=== PATIENT | female | born 1990 | race Caucasian/White ===

== ENCOUNTER 2018-09-24 15:37 | Emergency (ER) | payer OTHER ==
[~2018-09-24] VITALS: Ht 162.6 cm; Wt 78.8 kg
[2018-09-24 15:41] VITALS: Ht 162.6 cm; Wt 78.8 kg
[2018-09-24] MEDS ORDERED: LIDOCAINE 1% (MPF) 30 ML INJ INJ STA (16:32)
[2018-09-24] MEDS ORDERED: OXYCODONE/ACETAMINOPHEN (5/325) TAB PO ONE (17:00)
[2018-09-24] MEDS ORDERED: IBUP-1542 PO (18:08)
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
[2018-09-24 19:01] VITALS: BP 121/71; PULSE 79; RESP 19
== END 2018-09-24 19:03 | disposition home or self-care (01) ==
LOC: E/R 15:37
DX: S05.11XA Contusion of eyeball and orbital tissues, right eye, initial encounter (principal); S63.635A Sprain of interphalangeal joint of left ring finger, initial encounter; R07.9 Chest pain, unspecified; W49.01XA Hair causing external constriction, initial encounter; Y92.9 Unspecified place or not applicable
CPT/HCPCS: 70450; 70486; 71045; 73140

== ENCOUNTER 2019-03-15 08:17 | Inpatient (IN) | payer MEDICAID, OTHER ==
[~2019-03-15] VITALS: Ht 160 cm; Wt 90.0 kg
[~2019-03-15 08:17] MED LIST: IBUP-1542 PO
[2019-03-15] MEDS ORDERED: morphine 4 MG/ML VIAL IV STA (08:35)
[2019-03-15] MEDS ORDERED: ONDANSETRON 4 MG INJ IV STA (08:35)
[2019-03-15] MEDS ORDERED: SOD CHLORIDE 0.9% 1,000 ML IV STA ×2 (08:35→11:24)
[2019-03-15] MEDS ORDERED: KETOROLAC 30 MG INJ IV STA (10:27)
[2019-03-15] MEDS ORDERED: DICYCLOMINE 10 MG CAP PO ONE (10:30)
[2019-03-15] MEDS ORDERED: AMPICILLIN/SULB 3 GM/NS (PMX) 100 ML IVPB ONE ×2 (11:30→12:30)
--- NOTE | 2019-03-15 11:45 | EN ---
Date/Time of Note Date/Time of Note DATE: 03/15/19 TIME: 11:44 ER Progress Note I have discussed the patient along with the PA and/or WET PRIMER POWDER BLENDER provider. I agree with the evaluation and plan of care. Please see their documentation for full ER course and evaluation. In short: Patient with persistent right upper quadrant abdominal pain Assessment and plan: Patient with dilated common bile duct, biliary colic. Concern for possible choledocholithiasis with transaminitis. Patient will benefit from inpatient hospitalization, GI, general surgery consultations and MRCP. Empiric Unasyn g iven. No signs or symptoms concerning for acute cholecystitis or ascending cholangitis currently. Accepting care team and consultations: I discussed the current laboratory data, diagnostic imaging and emergency care provided. Admitting team: Dr. Robison Admitting team indication: Insurance directed WINNIE ANDERSON MD Mar 15, 2019 11:45
[2019-03-15] MEDS ORDERED: ACETAMINOPHEN 325 MG TAB PO PRN (12:00)
[2019-03-15] MEDS ORDERED: ONDANSETRON 4 MG INJ IV PRN (12:00)
[2019-03-15] MEDS ORDERED: HYDROCODONE/APAP (5/325) TAB PO PRN (12:30)
[2019-03-15] MEDS ORDERED: NACL 0.9% 3 ML SYG IV SCH (12:30)
--- NOTE | 2019-03-15 12:39 | HP ---
Date/Time of Note Date/Time of Note DATE: 03/15/19 TIME: 12:33 Assessment/Plan VTE Prophylaxis SCD applied (from Nsg): Yes Pharmacological prophylaxis: NA/contraindicated Pharm contraindication: low risk/ambulating Lines/Catheters IV Catheter Type (from Nrsg): Peripheral IV Assessment/Plan Hospital Course Assessment and plan 1. Cholelithiasis with CBD dilation. MRCP is pending. Pack Room Operator as well as surgeon are notified. We will continue with IV hydration. Will provide with IV analgesics and antiemetics as needed as well. 2. Transaminitis. Secondary to #1. Continue IV hydration. Monitor trend. MRCP is pending. Follow-up with GI recommendations. 3. Obesity. Weight reduction to be advised. Discussed POC with Dr. Gómez Result Diagram: 03/15/19 0852 03/15/19 0852 Results 24hrs Laboratory Tests Test 03/15/19 08:50 03/15/19 08:52 03/15/19 10:08 Urine Color YELLOW Urine Clarity CLEAR Urine pH 8.0 Urine Specific [place] 1.010 Urine Ketones NEGATIVE Urine Nitrite NEGATIVE Urine Bilirubin NEGATIVE Urine Urobilinogen NEGATIVE Urine Leukocyte Esterase NEGATIVE Urine Microscopic RBC 2 Urine Microscopic WBC 0 Urine Hemoglobin 1+ H Urine Glucose NEGATIVE Urine Total Protein NEGATIVE White Blood Count 10.2 Red Blood Count 4.63 Hemoglobin 13.5 Hematocrit 40.4 Mean Corpuscular Volume 87.3 Mean Corpuscular Hemoglobin 29.2 Mean Corpuscular Hemoglobin Concent 33.4 Red Cell Distribution Width 12.6 Platelet Count 265 Mean Platelet Volume 10.6 H Immature Granulocytes % 0.600 H Neutrophils % 82.3 H Lymphocytes % 9.4 L Monocytes % 6.7 Eosinophils % 0.5 Basophils % 0.5 Nucleated Red Blood Cells % 0.0 Immature Granulocytes # 0.060 H Neutrophils # 8.4 H Lymphocytes # 1.0 Monocytes # 0.7 Eosinophils # 0.1 Basophils # 0.1 Nucleated Red Blood Cells # 0.0 Sodium Level 144 Potassium Level 3.7 Chloride Level 105 Carbon Dioxide Level 27 Anion Gap 12 Blood Urea Nitrogen 11 Creatinine 0.53 Est Glomerular Filtrat Rate mL/min > 60 Glucose Level 127 Calcium Level 9.5 Total Bilirubin 0.7 Direct Bilirubin 0.00 Indirect Bilirubin 0.7 Aspartate Amino Transf (AST/SGOT) 490 H Alanine Aminotransferase (ALT/SGPT) 292 H Alkaline Phosphatase 89 Total Protein 8.5 H Albumin 4.8 Globulin 3.70 H Albumin/Globulin Ratio 1.29 Lipase 254 POC Beta HCG, Qualitative NEGATIVE HPI/ROS Admit Date/Time Admit Date/Time Hx of Present Illness This is a 28-year-old female with no reported past medical history who came to [facility] due to reports of abdominal pain for 1 day duration. Patient did report that her abdominal pain started last night when she was eating dinner when she reportedly ate shrimp. She states that after eating the food she started to have vomiting even with little oral consumption or liquids. She reports that she started to have epigastric pain that radiated from her right upper abdominal quadrant. Due to worsening of symptoms came to the hospital. She was afebrile on arrival. No leukocytosis noted. She did get abdominal imaging however with a gallbladder ultrasound showing dilated common bile duct at the level of the jordan hepatis measuring up to 8.5 mm. There is also seen cholelithiasis with multiple gallstones and a distended gallbladder. No evidence of gallbladder wall thickening or pericholecystic fluid. Patient also was noted with elevated liver enzymes as well. Currently she is on IV hydration and she was provided with IV analgesics with good response. No other specific complaints or other symptoms reported. We will evaluate her for the aformentiond issues. ROS 12 point review of systems obtained entirely negative except as mentioned in history of present illness PMH/Family/Social Past Medical History Medical/surgical history 1. Tonsillectomy Medications Current Medications Ondansetron HCl (Zofran Inj) 4 mg BRIDGE ORDER PRN IV NAUSEA/VOMITING; Start at 12:00; Stop 03/16/19 at 11:59 Acetaminophen (Tylenol Tab) 650 mg ER BRIDGE PRN PO .MILD PAIN 1-3 OR TEMP; Start 03/15/19 at 12:00; Stop 03/16/19 at 11:59 Ampicillin Sodium/ Sulbactam Sodium 100 ml @ 100 mls/hr ONCE ONCE IVPB Last administered on 03/15/19at 12:31; Admin Dose 100 MLS/HR; Start 03/15/19 at 12:30; Stop 03/15/19 at 13:29 Coded Allergies: No Known Allergy (Unverified , 09/24/18) Family History Significant Family History: no pertinent family hx Social History Alcohol Use: none Smoking Status: Never smoker Drug Use: none Exam/Review of Systems Vital Signs Vitals Vital Signs Date Temp Pulse Resp B/P (MAP) Pulse Ox O2 O2 Flow FiO2 Time Delivery Rate 03/15/19 98.1 94 18 149/90 99 08:18 (109) Exam Constitutional: alert, oriented Psych: nl mood/affect Head: normocephalic Eyes: nl conjunctiva Respiratory: clear to auscultation, normal air movement Cardiovascular: regular rate and rhythm Gastrointestinal: soft, tender (More on epigastric area and on right upper abdominal quadrant) Extremities: normal pulses Neurological: LIQUOR BLENDER II-XII intact, nl mental status, nl speech REGIDOREZRA NP Mar 15, 2019 12:39
[2019-03-15] MEDS: SOD CHLORIDE 0.9% 1,000 ML IV SCH ×2 (13:15→21:29)
--- NOTE | 2019-03-15 13:23 | ERD ---
ER Documentation Chief Complaint Chief Complaint ap with vomiting HPI 28-year-old female presenting with epigastric pain and vomiting x2 days. Patient states that she woke up with very sharp pain to the epigastric region but denies any chest pain or shortness of breath. Had a few episodes of vomiting prior to her ER visit. Denies any fevers. Has not taken medications for symptoms. Denies changes in urination or bowel movement. Denies medical problems. NKDA. Surgical history denies. Social history denies. ROS All systems reviewed and are negative except as per history of present illness. Medications Home Meds Active Scripts Ibuprofen* (Motrin*) 600 Mg Tab, 600 MG PO Q8 PRN for PAIN AND/OR INFLAMMATION, #30 TAB Prov:EUGENIO MATA MD 09/24/18 Allergies Allergies: Coded Allergies: No Known Allergy (Unverified , 09/24/18) PMhx/Soc Medical and Surgical Hx: pt denies Medical Hx, pt denies Surgical Hx Hx Alcohol Use: No Hx Substance Use: No Hx Tobacco Use: No Smoking Status: Never smoker FmHx Family History: No diabetes, No coronary disease, No other Physical Exam Vitals Vital Signs Date Temp Pulse Resp B/P (MAP) Pulse Ox O2 O2 Flow FiO2 Time Delivery Rate 03/15/19 98.1 94 18 149/90 99 08:18 (109) Physical Exam GENERAL: The patient is well-appearing, well-nourished, in no acute distres CHEST: Clear to auscultation bilaterally. There are no rales, wheezes or rhonchi. HEART: Regular rate and rhythm. No murmurs, clicks, rubs or gallops. ABDOMEN: Active bowel sounds. No distention. Tender to palpation the epigastric region with rebound tenderness. Positive Rodriguez's. No tenderness p alpation of the lower pelvic area. Result Diagram: 03/15/19 0852 03/15/19 0852 Results 24 hrs Laboratory Tests Test 03/15/19 08:50 03/15/19 08:52 03/15/19 10:08 Urine Color YELLOW Urine Clarity CLEAR Urine pH 8.0 Urine Specific [place] 1.010 Urine Ketones NEGATIVE mg/dL Urine Nitrite NEGATIVE mg/dL Urine Bilirubin NEGATIVE mg/dL Urine Urobilinogen NEGATIVE mg/dL Urine Leukocyte Esterase NEGATIVE Rosalva/ul Urine Microscopic RBC 2 /HPF Urine Microscopic WBC 0 /HPF Urine Hemoglobin 1+ mg/dL Urine Glucose NEGATIVE mg/dL Urine Total Protein NEGATIVE mg/dl White Blood Count 10.2 10^3/ul Red Blood Count 4.63 10^6/ul Hemoglobin 13.5 g/dl Hematocrit 40.4 % Mean Corpuscular Volume 87.3 fl Mean Corpuscular Hemoglobin 29.2 pg Mean Corpuscular 33.4 g/dl Hemoglobin Concent Red Cell Distribution Width 12.6 % Platelet Count 265 10^3/UL Mean Platelet Volume 10.6 fl Immature Granulocytes % 0.600 % Neutrophils % 82.3 % Lymphocytes % 9.4 % Monocytes % 6.7 % Eosinophils % 0.5 % Basophils % 0.5 % Nucleated Red Blood Cells % 0.0 /100WBC Immature Granulocytes # 0.060 10^3/ul Neutrophils # 8.4 10^3/ul Lymphocytes # 1.0 10^3/ul Monocytes # 0.7 10^3/ul Eosinophils # 0.1 10^3/ul Basophils # 0.1 10^3/ul Nucleated Red Blood Cells # 0.0 10^3/ul Sodium Level 144 mmol/L Potassium Level 3.7 mmol/L Chloride Level 105 mmol/L Carbon Dioxide Level 27 mmol/L Anion Gap 12 Blood Urea Nitrogen 11 mg/dl Creatinine 0.53 mg/dl Est Glomerular Filtrat > 60 mL/min Rate mL/min Glucose Level 127 mg/dl Calcium Level 9.5 mg/dl Total Bilirubin 0.7 mg/dl Direct Bilirubin 0.00 mg/dl Indirect Bilirubin 0.7 mg/dl Aspartate Amino Transf (AST/SGOT) 490 IU/L Alanine 292 IU/L Aminotransferase (ALT/SGPT) Alkaline Phosphatase 89 IU/L Total Protein 8.5 g/dl Albumin 4.8 g/dl Globulin 3.70 g/dl Albumin/Globulin Ratio 1.29 Lipase 254 U/L POC Beta HCG, Qualitative NEGATIVE Current Medications Medications Dose Sig/Stephanie Start Time Status Last (Trade) Ordered Route PRN Stop Time Admin Dose Reason Admin Sodium 1,000 ml @ Q1H STAT 03/15/19 DC 03/15/19 Chloride 1,000 mls/hr IV 08:35 03/15/19 08:53 09:34 Morphine 4 mg ONCE STAT 03/15/19 DC 03/15/19 Sulfate IV 08:35 03/15/19 08:53 (morphine) 08:37 Ondansetron 4 mg ONCE STAT 03/15/19 DC 03/15/19 HCl (Zofran IV 08:35 03/15/19 08:53 Inj) 08:37 Ketorolac 30 mg ONCE STAT 03/15/19 DC 03/15/19 Tromethamine IV 10:27 03/15/19 10:31 (Toradol) 10:28 Dicyclomine 10 mg ONCE ONCE 03/15/19 DC 03/15/19 HCl PO 10:30 03/15/19 10:31 (Bentyl) 10:31 Ampicillin 100 ml @ ONCE ONCE 03/15/19 DC Sodium/ 100 mls/hr IVPB 11:30 03/15/19 Sulbactam 12:24 Sodium Sodium 1,000 ml @ Q1H STAT 03/15/19 DC 03/15/19 Chloride 1,000 mls/hr IV 11:24 03/15/19 11:28 12:23 Ondansetron 4 mg BRIDGE ORDER 03/15/19 DC HCl (Zofran PRN IV 12:00 03/15/19 Inj) NAUSEA/VOMITI 12:39 NG 650 mg ER BRIDGE 03/15/19 DC Acetaminophen PRN PO 12:00 03/15/19 (Tylenol .MILD PAIN 12:39 Tab) 1-3 OR TEMP Ampicillin 100 ml @ ONCE ONCE 03/15/19 03/15/19 Sodium/ 100 mls/hr IVPB 12:30 03/15/19 12:31 Sulbactam 13:29 Sodium Sodium 1,000 ml @ Q10H IV 03/15/19 03/15/19 Chloride 100 mls/hr 12:30 13:15 IV Flush 3 ml PER 03/15/19 (NS 3 ml) PROTOCOL IV 12:30 Ondansetron 4 mg Q6H PRN 03/15/19 HCl (Zofran IV 12:30 Inj) NAUSEA/VOMITI NG 650 mg Q6H PRN 03/15/19 Acetaminophen PO .PAIN 1-3 12:30 (Tylenol OR TEMP Tab) 1 tab Q6H PRN 03/15/19 Acetaminophen PO .MOD PAIN 12:30 / 4-6 Hydrocodone Bitart (Tripp (5/325)) Morphine 2 mg Q4H PRN 03/15/19 Sulfate IV .SEVERE 12:30 (morphine) PAIN 7-10 Famotidine 20 mg Q12 IV 03/15/19 (Pepcid Iv) 21:00 Procedures/MDM DIAGNOSTIC IMAGING REPORT Patient: CLARE CHAUDHARI : 1990 Age: 28 Sex: F [id number] DOS: 03/15/19 0000 Ordering MD: MAXIME VALDERRAMA PA-C Location: E Room/Bed: PROCEDURE: US Abdomen (Right upper quadrant). CLINICAL INDICATION: Abdominal Pain TECHNIQUE: Multiple real-time longitudinal and transverse images were acquired of the patient's right upper quadrant using a curved array transducer. COMPARISON: None. FINDINGS: Liver: The liver measures 15.7 cm in length. Liver demonstrates normal echogenicity. No focal mass lesions are seen. No intrahepatic biliary dilatation is seen. Gallbladder: Multiple echogenic shadowing gallstones are identified along the dependent gallbladder lumen which is mildly distended. There is no pericholecystic fluid or gallbladder wall thickening. No sonographic Rodriguez's tenderness reported by the tin plater. Pancreas: The visualized portions of the pancreas are unremarkable. Common bile duct: measures 8.5 mm in maximal dimension. Portal vein: The portal vein is patent with hepatopetal flow. Right Kidney: The right kidney measures 11.3 x 4.4 cm. There is no evidence of hydronephrosis. There are no kidney stones. IMPRESSION: Cholelithiasis with multiple gallstones in a distended gallbladder. No evidence of gallbladder wall thickening or pericholecystic fluid. If the patient has been premedicated with analgesics, sonographic Rodriguez's tenderness may not be reliable indicator to exclude acute cholecystitis. If clinical picture remains equivocal, HIDA scan can be helpful in excluding cystic duct obstruction. Dilated common bile duct at the level of the jordan hepatis measuring up to 8.5 mm. Further correlation with biliary function tests is recommended to assess for cholestatic process. MRCP or ERCP can be performed to exclude obstructing stone, mass or stricture. ER course: 2 L normal saline given in the ED. Morphine, Bentyl and Toradol given. Patient's pain improved however was bartender helper in the epigastric region. Unasyn given in the ED. MDM; 28-year-old female presenting with epigastric pain. Patient had continued pain after pain medication was distributed. Patient will be admitted for further evaluation and MRCP. Patient had elevated AST and ALT however lipase is within normal limits. Given patient has continued pain with questionable readings on ultrasound patient will be admitted for evaluation of choledocholithiasis. Patient is stable at the time of admission Departure Diagnosis: Primary Impression: Epigastric pain Additional Impression: Gallstones Condition: LUIS Simmons PA-C Mar 15, 2019 13:23
--- NOTE | 2019-03-15 13:32 | CONS ---
Assessment/Plan Assessment/Plan Hospital Course (Demo Recall) Summary Assessment and Plan: Assessment: Cholelithiasis with dilated common bile duct on imaging -Rule out choledocholithiasis Transaminitis Obesity Plan: MRCP is currently pending-if positive will proceed with ERCP Okay to start clear liquid diet after MRCP from GI point of view Need to monitor LFTs Recommend agents based on clinical course. Patient seen in collaboration with Dr. Whitfield CC: ARNOLDO WHITFIELD MD ; Consultation Date/Type/Reason Admit Date/Time Date of Consultation: Mar 15, 2019 Type of Consult GI Reason for Consultation Transaminitis with dilated common bile ducts Rule out choledocholithiasis Date/Time of Note DATE: 03/15/19 TIME: 13:18 Hx of Present Illness This is a 28-year-old female with no significant past medical history who presented to with complaints of epigastric pain radiating to right upper quadrant and right back area associated with nausea and vomiting x1 day. Work- up in the ED included a gallbladder ultrasound which showed cholelithiasis with multiple gallstones and a distended gallbladder. No evidence of gallbladder wall thickening or pericholecystic fluid. Dilated common bile duct at the level of the jordan hepatis measuring up to 8.5 mm. Additionally labs were obtained showing transaminitis AST is 490, ALT 292, normal alkaline phosphatase, normal total bilirubin. Currently patient denies nausea/vomiting can she continues to complain of epigastric pain to the right upper quadrant worse with taking a deep breath and palpation. She denies change in urine color, change in bowel habits, pyrosis, melena, hematochezia, or unintentional weight loss. Review of Systems: [A 12 system, review was conducted and is negative except as noted in the HPI or here.] Past Medical History Home Meds Active Scripts Ibuprofen* (Motrin*) 600 Mg Tab, 600 MG PO Q8 PRN for PAIN AND/OR INFLAMMATION, #30 TAB Prov:EUGENIO MATA MD 09/24/18 Medications Current Medications Ampicillin Sodium/ Sulbactam Sodium 100 ml @ 100 mls/hr ONCE ONCE IVPB Last administered on 03/15/19at 12:31; Admin Dose 100 MLS/HR; Start 03/15/19 at 12:30; Stop 03/15/19 at 13:29 Sodium Chloride 1,000 ml @ 100 mls/hr Q10H IV Last administered on 03/15/19at 13:15; Admin Dose 100 MLS/HR; Start 03/15/19 at 12:30 IV Flush (NS 3 ml) 3 ml PER PROTOCOL IV ; Start 03/15/19 at 12:30 Ondansetron HCl (Zofran Inj) 4 mg Q6H PRN IV NAUSEA/VOMITING; Start 03/15/19 at 12:30 Acetaminophen (Tylenol Tab) 650 mg Q6H PRN PO .PAIN 1-3 OR TEMP; Start 03/15/19 at 12:30 Acetaminophen/ Hydrocodone Bitart ([place] (5/325)) 1 tab Q6H PRN PO .MOD PAIN 4- 6; Start 03/15/19 at 12:30 Morphine Sulfate (morphine) 2 mg Q4H PRN IV .SEVERE PAIN 7-10; Start 03/15/19 at 12:30 Famotidine (Pepcid Iv) 20 mg Q12 IV ; Start 03/15/19 at 21:00 Allergies: Coded Allergies: No Known Allergy (Unverified , 09/24/18) Social History Alcohol Use: none Smoking Status: Never smoker Drug Use: none Exam/Review of Systems Exam Vitals Vital Signs Date Temp Pulse Resp B/P (MAP) Pulse Ox O2 O2 Flow FiO2 Time Delivery Rate 03/15/19 98.1 94 18 149/90 99 08:18 (109) Exam PHYSICAL EXAMINATION: GENERAL: Well developed, well nourished, alert & oriented x 3, in no acute distress SKIN: No lesions. HEAD: Normocephalic, atraumatic, no tenderness. EYES: Pupils equal reactive to light and accommodation, no discharge. EARS/NOSE AND THROAT: Ears normal, nose normal. NECK: Supple, no masses CHEST: Inspection within normal limits. CARDIOVASCULAR: Heart: Regular rate and rhythm, no murmurs, RESPIRATORY: Lungs clear to auscultation GASTROINTESTINAL AND LIVER: Abdomen: Soft,RUQ tenderness, non-distended, no hernias, no masses, no organomegaly, no ascites, no guarding, no rebound tenderness, normoactive bowel sounds. Rectal: Deferred. EXTREMITIES: No cyanosis, clubbing or edema. Results Result Diagram: 03/15/19 0852 03/15/19 0852 Results 24hrs Laboratory Tests Test 03/15/19 08:50 03/15/19 08:52 03/15/19 10:08 Urine Color YELLOW Urine Clarity CLEAR Urine pH 8.0 Urine Specific [place] 1.010 Urine Ketones NEGATIVE Urine Nitrite NEGATIVE Urine Bilirubin NEGATIVE Urine Urobilinogen NEGATIVE Urine Leukocyte Esterase NEGATIVE Urine Microscopic RBC 2 Urine Microscopic WBC 0 Urine Hemoglobin 1+ H Urine Glucose NEGATIVE Urine Total Protein NEGATIVE White Blood Count 10.2 Red Blood Count 4.63 Hemoglobin 13.5 Hematocrit 40.4 Mean Corpuscular Volume 87.3 Mean Corpuscular Hemoglobin 29.2 Mean Corpuscular Hemoglobin Concent 33.4 Red Cell Distribution Width 12.6 Platelet Count 265 Mean Platelet Volume 10.6 H Immature Granulocytes % 0.600 H Neutrophils % 82.3 H Lymphocytes % 9.4 L Monocytes % 6.7 Eosinophils % 0.5 Basophils % 0.5 Nucleated Red Blood Cells % 0.0 Immature Granulocytes # 0.060 H Neutrophils # 8.4 H Lymphocytes # 1.0 Monocytes # 0.7 Eosinophils # 0.1 Basophils # 0.1 Nucleated Red Blood Cells # 0.0 Sodium Level 144 Potassium Level 3.7 Chloride Level 105 Carbon Dioxide Level 27 Anion Gap 12 Blood Urea Nitrogen 11 Creatinine 0.53 Est Glomerular Filtrat Rate mL/min > 60 Glucose Level 127 Calcium Level 9.5 Total Bilirubin 0.7 Direct Bilirubin 0.00 Indirect Bilirubin 0.7 Aspartate Amino Transf (AST/SGOT) 490 H Alanine Aminotransferase (ALT/SGPT) 292 H Alkaline Phosphatase 89 Total Protein 8.5 H Albumin 4.8 Globulin 3.70 H Albumin/Globulin Ratio 1.29 Lipase 254 POC Beta HCG, Qualitative NEGATIVE Medications Medication Current Medications Ampicillin Sodium/ Sulbactam Sodium 100 ml @ 100 mls/hr ONCE ONCE IVPB Last administered on 03/15/19at 12:31; Admin Dose 100 MLS/HR; Start 03/15/19 at 12:30; Stop 03/15/19 at 13:29 Sodium Chloride 1,000 ml @ 100 mls/hr Q10H IV Last administered on 03/15/19at 13:15; Admin Dose 100 MLS/HR; Start 03/15/19 at 12:30 IV Flush (NS 3 ml) 3 ml PER PROTOCOL IV ; Start 03/15/19 at 12:30 Ondansetron HCl (Zofran Inj) 4 mg Q6H PRN IV NAUSEA/VOMITING; Start 03/15/19 at 12:30 Acetaminophen (Tylenol Tab) 650 mg Q6H PRN PO .PAIN 1-3 OR TEMP; Start 03/15/19 at 12:30 Acetaminophen/ Hydrocodone Bitart ([place] (5/325)) 1 tab Q6H PRN PO .MOD PAIN 4- 6; Start 03/15/19 at 12:30 Morphine Sulfate (morphine) 2 mg Q4H PRN IV .SEVERE PAIN 7-10; Start 03/15/19 at 12:30 Famotidine (Pepcid Iv) 20 mg Q12 IV ; Start 03/15/19 at 21:00 JAG ENNIS Mar 15, 2019 13:30
[2019-03-15 14:31] VITALS: BP 95/55; PULSE 60; RESP 16
[2019-03-15 15:19] VITALS: Ht 160 cm; Wt 90.0 kg
[2019-03-15 19:51] VITALS: BP 96/51; PULSE 59; RESP 18
[2019-03-15] MEDS: FAMOTIDINE 20 MG INJ IV SCH (20:58)
[2019-03-15] MEDS: morphine 2 MG INJ IV PRN (21:59)
[2019-03-16] VITALS (14 sets, daily range): BP systolic 96–123; BP diastolic 48–80; PULSE 65–96; RESP 14–27
[2019-03-16] MEDS: SOD CHLORIDE 0.9% 1,000 ML IV SCH ×2 (02:39→16:29)
[2019-03-16] MEDS: FAMOTIDINE 20 MG INJ IV SCH ×2 (09:07→20:31)
[2019-03-16] MEDS ORDERED: INDOMETHACIN 50 MG SUPP PR ONE (10:30)
--- NOTE | 2019-03-16 11:03 | HPN ---
Date/Time of Note Date/Time of Note DATE: 03/16/19 TIME: 11:03 Interval H&P Admission Note Pt. seen H&P reviewed: No system changes ARNOLDO COHEN MD Mar 16, 2019 11:03
--- NOTE | 2019-03-16 11:06 | PREAC ---
Date/Time of Note Date/Time of Note DATE: 03/16/19 TIME: 11:04 Anesthesia Eval and Record Evaluation Time Pre-Procedure Interview DATE: 03/16/19 TIME: 11:04 Age 28 Sex female NPO: 8 hrs Preoperative diagnosis cholecystitis Planned procedure ercp Past Medical History Past Medical History: None : Other ([facility]) Surgery & Anesthesia Issues No known issue Meds Anticoagulation: No Beta Babita within 24 hr: No Reason Beta Babita not given: Pt. not on B-Babita Active Scripts Ibuprofen* (Motrin*) 600 Mg Tab, 600 MG PO Q8 PRN for PAIN AND/OR INFLAMMATION, #30 TAB Prov:EUGENIO MATA MD 09/24/18 Current Medications Sodium Chloride 1,000 ml @ 100 mls/hr Q10H IV Last administered on 03/16/19at 02:39; Admin Dose 100 MLS/HR; Start 03/15/19 at 12:30 IV Flush (NS 3 ml) 3 ml PER PROTOCOL IV ; Start 03/15/19 at 12:30 Ondansetron HCl (Zofran Inj) 4 mg Q6H PRN IV NAUSEA/VOMITING; Start 03/15/19 at 12:30 Acetaminophen (Tylenol Tab) 650 mg Q6H PRN PO .PAIN 1-3 OR TEMP; Start 03/15/19 at 12:30 Acetaminophen/ Hydrocodone Bitart ([place] (5/325)) 1 tab Q6H PRN PO .MOD PAIN 4- 6; Start 03/15/19 at 12:30 Morphine Sulfate (morphine) 2 mg Q4H PRN IV .SEVERE PAIN 7-10 Last administered on 03/15/19at 21:59; Admin Dose 2 MG; Start 03/15/19 at 12:30 Famotidine (Pepcid Iv) 20 mg Q12 IV Last administered on 03/16/19at 09:07; Admin Dose 20 MG; Start 03/15/19 at 21:00 Meds reviewed: Yes Allergies Coded Allergies: No Known Allergy (Unverified , 09/24/18) Allergies Reviewed: No Labs/Studies Labs Reviewed: Reviewed by anesthesiologist Result Diagram: 03/16/191 03/16/19 0441 Laboratory Tests 03/16/19 04:41 test: Negative Pre-procedure Exam Last vitals Vital Signs Date Temp Pulse Resp B/P (MAP) Pulse Ox O2 O2 Flow FiO2 Time Delivery Rate 03/16/19 98.6 73 18 102/59 97 07:54 (73) 03/16/19 Room Air 02:42 Airway: Adequate mouth opening Mallampati: Mallampati I Teeth: Normal Lung: Normal Heart: Normal ASA Physical Status ASA physical status: 2 Emergency: E Planned Anesthetic General/MAC: ETT Pre-operative Attestations Prior to commencing anesthesia and surgery, the patient was re-evaluated, there was verification of: *The patient's identity *The results of appropriate recent lab work and preoperative vital signs *The above evaluation not changing prior to induction *Anesthetic plan, risk benefits, alternative and complications discussed with patient/family; questions answered; patient/family understands, accepts and wishes to proceed. ANGELLA STARK MD Mar 16, 2019 11:06
[2019-03-16] MEDS ORDERED: SUCCINYLCHOLINE CHLORIDE 100 MG/5 ML SYG IV ONE (11:10)
[2019-03-16] MEDS ORDERED: HYDROmorphONE 2 MG/ML SYG ONE (11:10)
[2019-03-16] MEDS ORDERED: PROPOFOL 20 ML ONE (11:10)
[2019-03-16] MEDS ORDERED: MEPERIDINE 25 MG INJ IV PRN (11:30)
[2019-03-16] MEDS ORDERED: HYDROmorphONE 1 MG/5 ML IV SYRINGE IV PRN ×2 (11:30)
[2019-03-16] MEDS ORDERED: LABETALOL HCL 20MG INJ IV PRN (11:30)
[2019-03-16] MEDS ORDERED: METOCLOPRAMIDE 10 MG INJ IV PRN (11:30)
[2019-03-16] MEDS ORDERED: hydrALAzine 20 MG INJ IV PRN (11:30)
[2019-03-16] MEDS ORDERED: ONDANSETRON 4 MG INJ IV PRN (11:30)
--- NOTE | 2019-03-16 11:57 | OPPN ---
Date/Time of Note Date/Time of Note DATE: 03/16/19 TIME: 11:53 Proc Note GI Procedure Date 03/16/19 Indication: diagnostic, treatment Pre-procedure Diagnosis Suspected choledocholithiasis Post-procedure Diagnosis Impression: Choledocholithiasis 6 mm stone distal common bile duct. Post sphincterotomy. Post stone removal. Plan: Close observation. Laparoscopic cholecystectomy at the discretion of ophthalmic surgical assistant Procedure Performed: ERCP (With sphincterotomy and stone removal) Surgeon ARNOLDO COHEN MD See signature line Environmental Project Manager none Anesthesia Type: general Anesthesiologist: ANGELLA STARK MD Tourniquet Time none EBL none Transfusion required none Biopsy 1: None Grafts/Implants none Tubes/Drains none Complication(s) none Disposition: PACU Procedure Description After informed consent, with the patient/relatives understanding the procedure, its indications, potential risks and complications, including but not limited to: allergic reaction, bleeding, perforation or infection, and after all pertinent questions were answered to the patients satisfaction, the patient/relatives signed witnessed informed consent. Following this, premedication was administered slowly IV push under careful cardiovascular and respiratory monitoring with pulse oximetry, automatic blood pressure, and phototypesetting equipment monitor. Once the sedative effect was achieved the patient was place in the prone position in the radiology special procedures suite; the side viewing panendoscope was introduced and advanced under visual control. Careful examination of the upper gastrointestinal tract, both on insertion as well as withdrawal of the instrument disclosed the following findings: Esophagus: The mucosa of the entire appears within normal limits. There is no evidence of esophagitis, varices, neoplasm or stricture. No Hiatal Hernia identified. Stomach: Upon entrance to the stomach air was insufflated, the gastric nolen distended normally, the mucosa of the fundus, body and antrum of the stomach was carefully examined both head-on and on retroflexion, and shows no abnormalities. There is no evidence of gastritis, ulcers, or neoplasm. Pylorus: The pylorus appears patent and within normal limits, with no evidence of gastric outlet obstruction. Duodenum: The duodenal mucosa was carefully examined in the duodenal bulb as well as the second portion of the duodenum and appears unremarkable with no evidence of duodenitis, ulcer or neoplasm. Ampulla of vater: The ampulla of Vater was identified and carefully examined appearing within normal limits. Cannulation: At this point cannulation was accomplished with the following fluo roscopic findings: Pancreatogram: Normal Cholangiogram: There is moderate dilatation of biliary tree to approximately 10 mm. A 6 mm stone is noticed initially impacted in the distal common bile duct but was less large enough lots of the common bile duct. A standard sphincterotomy was performed. A 9-12 balloon was utilized to sweep the biliary tree and remove the stone this was witnessed endoscopically. Balloon cholangiogram disclosed no additional stones and rapid emptying. The instrument was then withdrawn the patient tolerated the procedure well and was transfer out of the endoscopy suite awake, and in good condition to continue to recover under observation. Copies To: CC: ARNOLDO COHEN MD ; ARNOLDO COHEN MD Mar 16, 2019 11:57
--- NOTE | 2019-03-16 12:37 | PAC ---
Date/Time of Note Date/Time of Note DATE: 03/16/19 TIME: 12:37 Post-Anesthesia Notes Post-Anesthesia Note Last documented vital signs Vital Signs Date Temp Pulse Resp B/P (MAP) Pulse Ox O2 O2 Flow FiO2 Time Delivery Rate 03/16/19 96 21 115/78 97 Mask 12:08 (90) 03/16/19 99.0 6.0 12:00 Activity: WNL Respiratory function: WNL Cardiovascular function: WNL Mental status: Baseline Pain reasonably controlled: Yes Hydration appropriate: Yes Nausea/Vomiting absent: Yes ANGELLA STARK MD Mar 16, 2019 12:37
--- NOTE | 2019-03-16 13:11 | PN ---
Date/Time of Note Date/Time of Note DATE: 03/16/19 TIME: 13:09 Assessment/Plan VTE Prophylaxis Risk score (from [facility] [place] [facility])>0 risk: 0 SCD applied (from Ns): Yes Pharmacological prophylaxis: NA/contraindicated Pharm contraindication: low risk/ambulating Lines/Catheters IV Catheter Type (from [facility]): Peripheral IV Assessment/Plan Hospital Course Assessment and plan 1. Cholelithiasis with CBD dilation. - MRCP with no CBD dilation. -l continue with IV hydration. - analgesics and antiemetics as needed as well. - tentative plan for lap-laurence 2. Transaminitis. - f/u hepatitis panel - monitor trend 3. Obesity. - Weight reduction was advised. Disposition plan. possible laparoscopic cholecystectomy per surgeon. f/u GI recommendations. monitor LFT . Will follow. Discussed POC with Dr. Gómez Result Diagram: 03/16/19 0441 03/16/19 0441 Results 24hrs Laboratory Tests Test 03/16/19 04:41 03/16/19 09:01 White Blood Count 4.0 #L Red Blood Count 3.94 L Hemoglobin 11.6 L Hematocrit 34.7 L Mean Corpuscular Volume 88.1 Mean Corpuscular Hemoglobin 29.4 Mean Corpuscular Hemoglobin Concent 33.4 Red Cell Distribution Width 12.8 Platelet Count 200 # Mean Platelet Volume 10.9 H Immature Granulocytes % 0.700 H Neutrophils % 42.9 Lymphocytes % 36.6 Monocytes % 12.9 H Eosinophils % 5.7 Basophils % 1.2 Nucleated Red Blood Cells % 0.0 Immature Granulocytes # 0.030 Neutrophils # 1.7 Lymphocytes # 1.5 Monocytes # 0.5 Eosinophils # 0.2 Basophils # 0.1 Nucleated Red Blood Cells # 0.0 Sodium Level 145 H Potassium Level 3.7 Chloride Level 110 Carbon Dioxide Level 27 Anion Gap 8 Blood Urea Nitrogen 6 L Creatinine 0.55 Est Glomerular Filtrat Rate mL/min > 60 Glucose Level 88 Hemoglobin A1c 5.0 Calcium Level 8.4 Phosphorus Level 3.6 Magnesium Level 1.9 Total Bilirubin 1.6 H Direct Bilirubin 0.10 Indirect Bilirubin 1.5 H Aspartate Amino Transf (AST/SGOT) 641 H Alanine Aminotransferase (ALT/SGPT) 774 H Alkaline Phosphatase 93 Total Protein 6.0 #L Albumin 3.4 # Globulin 2.60 Albumin/Globulin Ratio 1.30 Triglycerides Level 134 Cholesterol Level 146 LDL Cholesterol, Calculated 90 HDL Cholesterol 29 L Cholesterol/HDL Ratio 5.0 Thyroid Stimulating Hormone (TSH) 1.010 Free Thyroxine Index 2.01 Thyroxine (T4) 4.9 L Triiodothyronine (T3) Uptake 41.1 H Hepatitis B Surface Antigen NEGATIVE Hepatitis B Core Total Antibody NEGATIVE Hepatitis C Antibody NEGATIVE Subjective 24 Hr Interval Summary Free Text/Dictation Seen this morning with abdominal pain more on right upper abdominal quadrant radiating to epigastric area. Exam/Review of Systems Exam Vitals Vital Signs Date Temp Pulse Resp B/P (MAP) Pulse Ox O2 O2 Flow FiO2 Time Delivery Rate 03/16/19 74 17 111/68 90 Room Air 12:38 (82) 03/16/19 99.0 6.0 12:00 Intake and Output 03/15/19 03/15/19 03/16/19 1515:00 23:00 07:00 IntakeIntake Total 2000 ml 350 ml 850 ml BalanceBalance 2000 ml 350 ml 850 ml Exam Constitutional: alert, oriented Psych: nl mood/affect Head: normocephalic Eyes: nl conjunctiva Respiratory: clear to auscultation, normal air movement Cardiovascular: regular rate and rhythm Gastrointestinal: soft, tender ( right upper abdominal quadrant) Extremities: normal pulses Neurological: FIRE WARDEN II-XII intact, nl mental status, nl speech Results Results 24hrs Laboratory Tests Test 03/16/19 04:41 03/16/19 09:01 White Blood Count 4.0 #L Red Blood Count 3.94 L Hemoglobin 11.6 L Hematocrit 34.7 L Mean Corpuscular Volume 88.1 Mean Corpuscular Hemoglobin 29.4 Mean Corpuscular Hemoglobin Concent 33.4 Red Cell Distribution Width 12.8 Platelet Count 200 # Mean Platelet Volume 10.9 H Immature Granulocytes % 0.700 H Neutrophils % 42.9 Lymphocytes % 36.6 Monocytes % 12.9 H Eosinophils % 5.7 Basophils % 1.2 Nucleated Red Blood Cells % 0.0 Immature Granulocytes # 0.030 Neutrophils # 1.7 Lymphocytes # 1.5 Monocytes # 0.5 Eosinophils # 0.2 Basophils # 0.1 Nucleated Red Blood Cells # 0.0 Sodium Level 145 H Potassium Level 3.7 Chloride Level 110 Carbon Dioxide Level 27 Anion Gap 8 Blood Urea Nitrogen 6 L Creatinine 0.55 Est Glomerular Filtrat Rate mL/min > 60 Glucose Level 88 Hemoglobin A1c 5.0 Calcium Level 8.4 Phosphorus Level 3.6 Magnesium Level 1.9 Total Bilirubin 1.6 H Direct Bilirubin 0.10 Indirect Bilirubin 1.5 H Aspartate Amino Transf (AST/SGOT) 641 H Alanine Aminotransferase (ALT/SGPT) 774 H Alkaline Phosphatase 93 Total Protein 6.0 #L Albumin 3.4 # Globulin 2.60 Albumin/Globulin Ratio 1.30 Triglycerides Level 134 Cholesterol Level 146 LDL Cholesterol, Calculated 90 HDL Cholesterol 29 L Cholesterol/HDL Ratio 5.0 Thyroid Stimulating Hormone (TSH) 1.010 Free Thyroxine Index 2.01 Thyroxine (T4) 4.9 L Triiodothyronine (T3) Uptake 41.1 H Hepatitis B Surface Antigen NEGATIVE Hepatitis B Core Total Antibody NEGATIVE Hepatitis C Antibody NEGATIVE Medications Medication Current Medications Sodium Chloride 1,000 ml @ 100 mls/hr Q10H IV Last administered on 03/16/19at 02:39; Admin Dose 100 MLS/HR; Start 03/15/19 at 12:30 IV Flush (NS 3 ml) 3 ml PER PROTOCOL IV ; Start 03/15/19 at 12:30 Ondansetron HCl (Zofran Inj) 4 mg Q6H PRN IV NAUSEA/VOMITING; Start 03/15/19 at 12:30 Acetaminophen (Tylenol Tab) 650 mg Q6H PRN PO .PAIN 1-3 OR TEMP; Start 03/15/19 at 12:30 Acetaminophen/ Hydrocodone Bitart ([place] (5/325)) 1 tab Q6H PRN PO .MOD PAIN 4- 6; Start 03/15/19 at 12:30 Morphine Sulfate (morphine) 2 mg Q4H PRN IV .SEVERE PAIN 7-10 Last administered on 03/15/19at 21:59; Admin Dose 2 MG; Start 03/15/19 at 12:30 Famotidine (Pepcid Iv) 20 mg Q12 IV Last administered on 03/16/19at 09:07; Admin Dose 20 MG; Start 03/15/19 at 21:00 Hydromorphone HCl (Dilaudid) 0.2 mg PACU PRN IV MILD PAIN 1-3; Start 03/16/19 at 11:30; Stop 03/16/19 at 16:00 Hydromorphone HCl (Dilaudid) 0.4 mg PACU PRN IV MOD PAIN 4-6; Start 03/16/19 at 11:30; Stop 03/16/19 at 16:00 Ondansetron HCl (Zofran Inj) 4 mg PACU ORDER PRN IV NAUSEA/VOMITING; Start 03/16/19 at 11:30; Stop 03/16/19 at 16:00 Metoclopramide HCl (Reglan) 10 mg PACU ORDER PRN IV NAUSEA/VOMITING; Start 03/16/19 at 11:30; Stop 03/16/19 at 16:00 Labetalol HCl (Labetalol) 5 mg PACU ORDER PRN IV HIGH BLOOD PRESSURE; Start 03/16/19 at 11:30; Stop 03/16/19 at 16:00 Hydralazine HCl (Apresoline) 5 mg PACU ORDER PRN IV HIGH BLOOD PRESSURE; Start 03/16/19 at 11:30; Stop 03/16/19 at 16:00 Meperidine HCl (Demerol) 25 mg PACU ORDER PRN IV .RIGORS; Start 03/16/19 at 11:30; Stop 03/16/19 at 16:00 EZRA PAN NP Mar 16, 2019 13:11
[2019-03-16] MEDS: ONDANSETRON 4 MG INJ IV PRN (13:12)
[2019-03-16] MEDS: morphine 2 MG INJ IV PRN (13:12)
[2019-03-16] MEDS: ACETAMINOPHEN 325 MG TAB PO PRN ×2 (16:29→22:54)
--- NOTE | 2019-03-16 20:08 | CONS ---
Assessment/Plan Assessment/Plan Problems: (1) Gallstones Status: Acute (2) Epigastric pain Status: Acute Assessment/Plan (Daily) Cholelithiasis. Choledocholithiasis should be ruled out. Agree with MRCP possible ERCP followed by laparoscopic cholecystectomy. Consultation Date/Type/Reason Admit Date/Time Date of Consultation: Mar 15, 2019 Type of Consult Surgical Date/Time of Note DATE: 03/16/19 TIME: 20:06 Hx of Present Illness This is a 28-year-old female with no significant past medical history who presented to with complaints of epigastric pain radiating to right upper quadrant and right back area associated with nausea and vomiting x1 day. Work- up in the ED included a gallbladder ultrasound which showed cholelithiasis with multiple gallstones and a distended gallbladder. No evidence of gallbladder wall thickening or pericholecystic fluid. Dilated common bile duct at the level of the jordan hepatis measuring up to 8.5 mm. Additionally labs were obtained showing transaminitis AST is 490, ALT 292, normal alkaline phosphatase, normal total bilirubin. Currently patient denies nausea/vomiting can she continues to complain of epigastric pain to the right upper quadrant worse with taking a deep breath and palpation. She denies change in urine color, change in bowel habits, pyrosis, melena, hematochezia, or unintentional weight loss. Constitutional: no complaints, improved Eyes: no complaints ENT: no complaints Respiratory: no complaints Cardiovascular: no complaints Gastrointestinal: no complaints Genitourinary: no complaints Musculoskeletal: no complaints Skin: no complaints Neurologic: no complaints Endocrine: no complaints Lymphatic: no complaints Psychological: no complaints, nl mood/affect Immunologic: no complaints Past Medical History Home Meds Active Scripts Ibuprofen* (Motrin*) 600 Mg Tab, 600 MG PO Q8 PRN for PAIN AND/OR INFLAMMATION, #30 TAB Prov:EUGENIO MATA MD 09/24/18 Medications Current Medications Sodium Chloride 1,000 ml @ 100 mls/hr Q10H IV Last administered on 03/16/19at 16:29; Admin Dose 100 MLS/HR; Start 03/15/19 at 12:30 IV Flush (NS 3 ml) 3 ml PER PROTOCOL IV ; Start 03/15/19 at 12:30 Ondansetron HCl (Zofran Inj) 4 mg Q6H PRN IV NAUSEA/VOMITING Last administered on 03/16/19at 13:12; Admin Dose 4 MG; Start 03/15/19 at 12:30 Acetaminophen (Tylenol Tab) 650 mg Q6H PRN PO .PAIN 1-3 OR TEMP Last administered on 03/16/19at 16:29; Admin Dose 650 MG; Start 03/15/19 at 12:30 Acetaminophen/ Hydrocodone Bitart ([place] (5/325)) 1 tab Q6H PRN PO .MOD PAIN 4- 6; Start 03/15/19 at 12:30 Morphine Sulfate (morphine) 2 mg Q4H PRN IV .SEVERE PAIN 7-10 Last administered on 03/16/19at 13:12; Admin Dose 2 MG; Start 03/15/19 at 12:30 Famotidine (Pepcid Iv) 20 mg Q12 IV Last administered on 03/16/19at 09:07; Admin Dose 20 MG; Start 03/15/19 at 21:00 Allergies: Coded Allergies: No Known Allergy (Unverified , 09/24/18) Social History Alcohol Use: none Smoking Status: Never smoker Drug Use: none Exam/Review of Systems Exam Vitals Vital Signs Date Temp Pulse Resp B/P (MAP) Pulse Ox O2 O2 Flow FiO2 Time Delivery Rate 03/16/19 98.4 79 20 115/70 100 19:53 (85) 03/16/19 Room Air 12:38 03/16/19 6.0 12:00 Intake and Output 03/15/19 03/15/19 03/16/19 1515:00 23:00 07:00 IntakeIntake Total 2000 ml 350 ml 850 ml BalanceBalance 2000 ml 350 ml 850 ml Gastrointestinal: other (Mild tenderness in the right upper quadrant.) Results Result Diagram: 03/16/191 03/16/191 Results 24hrs Laboratory Tests Test 03/16/19 04:41 03/16/19 09:01 White Blood Count 4.0 #L Red Blood Count 3.94 L Hemoglobin 11.6 L Hematocrit 34.7 L Mean Corpuscular Volume 88.1 Mean Corpuscular Hemoglobin 29.4 Mean Corpuscular Hemoglobin Concent 33.4 Red Cell Distribution Width 12.8 Platelet Count 200 # Mean Platelet Volume 10.9 H Immature Granulocytes % 0.700 H Neutrophils % 42.9 Lymphocytes % 36.6 Monocytes % 12.9 H Eosinophils % 5.7 Basophils % 1.2 Nucleated Red Blood Cells % 0.0 Immature Granulocytes # 0.030 Neutrophils # 1.7 Lymphocytes # 1.5 Monocytes # 0.5 Eosinophils # 0.2 Basophils # 0.1 Nucleated Red Blood Cells # 0.0 Sodium Level 145 H Potassium Level 3.7 Chloride Level 110 Carbon Dioxide Level 27 Anion Gap 8 Blood Urea Nitrogen 6 L Creatinine 0.55 Est Glomerular Filtrat Rate mL/min > 60 Glucose Level 88 Hemoglobin A1c 5.0 Calcium Level 8.4 Phosphorus Level 3.6 Magnesium Level 1.9 Total Bilirubin 1.6 H Direct Bilirubin 0.10 Indirect Bilirubin 1.5 H Aspartate Amino Transf (AST/SGOT) 641 H Alanine Aminotransferase (ALT/SGPT) 774 H Alkaline Phosphatase 93 Total Protein 6.0 #L Albumin 3.4 # Globulin 2.60 Albumin/Globulin Ratio 1.30 Triglycerides Level 134 Cholesterol Level 146 LDL Cholesterol, Calculated 90 HDL Cholesterol 29 L Cholesterol/HDL Ratio 5.0 Thyroid Stimulating Hormone (TSH) 1.010 Free Thyroxine Index 2.01 Thyroxine (T4) 4.9 L Triiodothyronine (T3) Uptake 41.1 H Hepatitis B Surface Antigen NEGATIVE Hepatitis B Core Total Antibody NEGATIVE Hepatitis C Antibody NEGATIVE Medications Medication Current Medications Sodium Chloride 1,000 ml @ 100 mls/hr Q10H IV Last administered on 03/16/19at 16:29; Admin Dose 100 MLS/HR; Start 03/15/19 at 12:30 IV Flush (NS 3 ml) 3 ml PER PROTOCOL IV ; Start 03/15/19 at 12:30 Ondansetron HCl (Zofran Inj) 4 mg Q6H PRN IV NAUSEA/VOMITING Last administered on 03/16/19at 13:12; Admin Dose 4 MG; Start 03/15/19 at 12:30 Acetaminophen (Tylenol Tab) 650 mg Q6H PRN PO .PAIN 1-3 OR TEMP Last administered on 03/16/19at 16:29; Admin Dose 650 MG; Start 03/15/19 at 12:30 Acetaminophen/ Hydrocodone Bitart ([place] (5/325)) 1 tab Q6H PRN PO .MOD PAIN 4- 6; Start 03/15/19 at 12:30 Morphine Sulfate (morphine) 2 mg Q4H PRN IV .SEVERE PAIN 7-10 Last administered on 03/16/19at 13:12; Admin Dose 2 MG; Start 03/15/19 at 12:30 Famotidine (Pepcid Iv) 20 mg Q12 IV Last administered on 03/16/19at 09:07; Admin Dose 20 MG; Start 03/15/19 at 21:00 ANETA BLANCHARD MD Mar 16, 2019 20:08
[2019-03-17] VITALS (17 sets, daily range): BP systolic 105–121; BP diastolic 58–86; PULSE 68–96; RESP 14–23
[2019-03-17] MEDS: SOD CHLORIDE 0.9% 1,000 ML IV SCH ×2 (02:37→04:09)
[2019-03-17] MEDS: morphine 2 MG INJ IV PRN ×2 (05:35→15:25)
[2019-03-17] MEDS: ONDANSETRON 4 MG INJ IV PRN (05:35)
--- NOTE | 2019-03-17 10:08 | PREAC ---
Date/Time of Note Date/Time of Note DATE: 03/17/19 TIME: 10:07 Anesthesia Eval and Record Evaluation Time Pre-Procedure Interview DATE: 03/17/19 TIME: 10:07 Age 28 Sex female NPO: 8 hrs Preoperative diagnosis Cholelithiasis Planned procedure Lap Cholecystectomy Past Medical History Past Medical History: Includes GI: Obesity Surgery & Anesthesia Issues No known issue Meds Anticoagulation: No Beta Babita within 24 hr: No Reason Beta Babita not given: Pt. not on B-Babita Active Scripts Ibuprofen* (Motrin*) 600 Mg Tab, 600 MG PO Q8 PRN for PAIN AND/OR INFLAMMATION, #30 TAB Prov:EUGENIO MATA MD 09/24/18 Current Medications Sodium Chloride 1,000 ml @ 100 mls/hr Q10H IV Last administered on 03/17/19at 02:37; Admin Dose 100 MLS/HR; Start 03/15/19 at 12:30 IV Flush (NS 3 ml) 3 ml PER PROTOCOL IV ; Start 03/15/19 at 12:30 Ondansetron HCl (Zofran Inj) 4 mg Q6H PRN IV NAUSEA/VOMITING Last administered on 03/17/19at 05:35; Admin Dose 4 MG; Start 03/15/19 at 12:30 Acetaminophen (Tylenol Tab) 650 mg Q6H PRN PO .PAIN 1-3 OR TEMP Last administered on 03/16/19at 22:54; Admin Dose 650 MG; Start 03/15/19 at 12:30 Acetaminophen/ Hydrocodone Bitart ([place] (5/325)) 1 tab Q6H PRN PO .MOD PAIN 4- 6; Start 03/15/19 at 12:30 Morphine Sulfate (morphine) 2 mg Q4H PRN IV .SEVERE PAIN 7-10 Last administered on 03/17/19at 05:35; Admin Dose 2 MG; Start 03/15/19 at 12:30 Famotidine (Pepcid Iv) 20 mg Q12 IV Last administered on 03/16/19at 20:31; Admin Dose 20 MG; Start 03/15/19 at 21:00 Meds reviewed: Yes Allergies Coded Allergies: No Known Allergy (Unverified , 09/24/18) Allergies Reviewed: Yes Labs/Studies Labs Reviewed: Reviewed by anesthesiologist Result Diagram: 7/5/19 0441 7/5/19 0441 test: Negative Studies: ECG Pre-procedure Exam Last vitals Vital Signs Date Temp Pulse Resp B/P (MAP) Pulse Ox O2 O2 Flow FiO2 Time Delivery Rate 03/17/19 98.4 76 18 106/72 96 08:16 (83) 03/16/19 Room Air 12:38 03/16/19 6.0 12:00 Airway: Adequate mouth opening, Adequate thyromental dist Mallampati: Mallampati II Teeth: Normal Lung: Normal Heart: Normal ASA Physical Status ASA physical status: 2 Emergency: None Planned Anesthetic General/MAC: ETT Planned Pain Management Single shot nerve block, Parenteral pain med Pre-operative Attestations Prior to commencing anesthesia and surgery, the patient was re-evaluated, there was verification of: *The patient's identity *The results of appropriate recent lab work and preoperative vital signs *The above evaluation not changing prior to induction *Anesthetic plan, risk benefits, alternative and complications discussed with patient/family; questions answered; patient/family understands, accepts and wishes to proceed. MALACHI DC MD Mar 17, 2019 10:08
[2019-03-17] MEDS ORDERED: MIDAZOLAM 1 MG/ML 2 ML INJ ONE (10:20)
--- NOTE | 2019-03-17 10:41 | HPN ---
Date/Time of Note Date/Time of Note DATE: 03/17/19 TIME: 10:39 Interval H&P Admission Note Pt. seen H&P reviewed: Systems changes noted below Patient underwent ERCP yesterday and common bile duct stone was extracted. ANETA BLANCHARD MD Mar 17, 2019 10:41
[2019-03-17] MEDS ORDERED: ROPIVACAINE 0.5 % 30 ML VIAL ONE (11:00)
[2019-03-17] MEDS ORDERED: BUPIVACAINE 0.5%/EPI (SDV) 30 ML INJ ONE (11:14)
[2019-03-17] MEDS ORDERED: LIDOCAINE 1% (MPF) 30 ML INJ ONE (11:14)
[2019-03-17] MEDS ORDERED: PROPOFOL 20 ML ONE (11:44)
[2019-03-17] MEDS ORDERED: CEFAZOLIN 1 GM INJ ONE (11:44)
[2019-03-17] MEDS ORDERED: LIDOCAINE 2% (SDV) 5 ML INJ ONE (11:44)
[2019-03-17] MEDS ORDERED: ROCURONIUM 50 MG INJ ONE (11:44)
[2019-03-17] MEDS ORDERED: KETOROLAC 30 MG INJ ONE (11:45)
[2019-03-17] MEDS ORDERED: ONDANSETRON 4 MG INJ ONE (11:45)
[2019-03-17] MEDS ORDERED: GLYCOPYRROLATE 0.4 MG INJ ONE (11:54)
[2019-03-17] MEDS ORDERED: NEOSTIGMINE 3 MG/3 ML SYRINGE ONE (11:54)
[2019-03-17] MEDS ORDERED: morphine 2 MG INJ IV PRN (12:00)
[2019-03-17] MEDS ORDERED: IBUPROFEN 600 MG TAB PO PRN (12:00)
[2019-03-17] MEDS ORDERED: ONDANSETRON 4 MG INJ IV PRN ×2 (12:00→12:30)
[2019-03-17] MEDS ORDERED: HYDROCODONE/APAP (5/325) TAB PO PRN (12:00)
[2019-03-17] MEDS ORDERED: ACETAMINOPHEN 325 MG TAB PO PRN (12:00)
[2019-03-17] MEDS ORDERED: DIPHENHYDRAMINE 25 MG CAP PO PRN (12:00)
[2019-03-17] MEDS ORDERED: KETOROLAC 30 MG INJ IV PRN ×2 (12:00→12:30)
--- NOTE | 2019-03-17 12:03 | OPR ---
Date/Time of Note Date/Time of Note DATE: 03/17/19 TIME: 12:01 Operative Report Procedure Date: Mar 17, 2019 Preoperative Diagnosis Acute cholecystitis Postoperative Diagnosis Acute cholecystitis Operation/Procedure Performed Laparoscopic cholecystectomy with fluorescent cholangiogram Surgeon see signature line Petal Cutter None Anesthesia Type: general Anesthesiologist: A Estimated Blood Loss: 0 - 10 ml's Transfusion none Specimen Gallbladder Grafts/Implants none Complications none Pt Condition Post Procedure: stable Disposition: PACU Indications Patient presented with acute cholecystitis and elevated LFTs. Underwent ERCP yesterday with common bile duct stone extraction We discussed risks and benefits were discussed possible side effects, possible complications including but not limited to bleeding, infection, injury to other organs, anesthesia complication, patient understood risk and benefits and wished to proceed. Procedure Description The risks, benefits and alternatives of the procedure were discussed with the patient and informed consent was obtained. We discussed with the patient and the family possibility of the bleeding, infection, injury to other organs, bile ducts injury, retained stones and necessity of the ERCP. OPERATIVE PROCEDURE: The patient was brought to the operating room and placed supine. IV antibiotics were given. Venodynes were placed to both lower extremities. General endotracheal anesthesia was achieved. The abdomen was prepped and draped in a sterile fashion. 0.25% Marcaine with epinephrine was used for local anesthesia. A small infraumbilical incision was made and a Veress needle inserted. Intraperitoneal position was confirmed using the saline drop test. Carbon dioxide pneumoperitoneum was achieved with a good filling pressure to 15 mmHg. The 30-degree 5 mm video laparoscope was inserted through a 5-mm trocar placed in the right paramedian position just next to umbilicus. There was no evidence of injury after Veress needle and trocar insertion. Additional trocars were placed, a 12-mm subxiphoid trocar, and two 5-mm trocars at the right upper quadrant. The gallbladder was grasped at the fundus and elevated cephalad. The area at Calot's triangle was dissected using blunt and electrocautery dissection, and critical view was obtained. ICG imaging confirmed the correct identification of the biliary ducts. Clip placed across the cystic duct and artery. The cystic duct was clipped additionally and then divided. The cystic artery was clipped x2 additionally. The gallbladder was dissected off the liver using electrocautery dissection and removed using an EndoCatch bag. The trocars were removed under direct visualization and no bleeding seen at the trocar sites. The pneumoperitoneum was reduced and the subxiphoid and umbilical trocar sites closed with 0 Vicryl to reapproximate the fascia. The trocar sites were reapproximated with 4-0 Monocryl sutures. Steri-Strips and sterile dressings were applied. The sponge and instrument counts were reported as correct x2. Estimated blood loss was 5 cc. The patient was woken from anesthesia, extubated, and transferred to the recovery room in stable condition. By the end of the procedure, the instrument and sponge counts were correct x2. STATEMENT OF PRESENCE: Dr. Montanez was present for the entire case. ANETA MONTANEZ MD Mar 17, 2019 12:03
--- NOTE | 2019-03-17 12:18 | PAC ---
Date/Time of Note Date/Time of Note DATE: 03/17/19 TIME: 12:17 Post-Anesthesia Notes Post-Anesthesia Note Last documented vital signs Vital Signs Date Temp Pulse Resp B/P (MAP) Pulse Ox O2 O2 Flow FiO2 Time Delivery Rate 03/17/19 98.4 76 18 106/72 96 08:16 (83) 03/16/19 Room Air 12:38 03/16/19 6.0 12:00 Activity: WNL Respiratory function: WNL Cardiovascular function: WNL Mental status: Baseline Pain reasonably controlled: Yes Hydration appropriate: Yes Nausea/Vomiting absent: Yes Comments BP:112/56, P:88, Spo2:100%, T:99,4 MALACHI DC MD Mar 17, 2019 12:18
[2019-03-17] MEDS ORDERED: MEPERIDINE 25 MG INJ IV PRN (12:30)
[2019-03-17] MEDS ORDERED: DIPHENHYDRAMINE 50 MG INJ IV PRN (12:30)
[2019-03-17] MEDS ORDERED: HYDROmorphONE 1 MG/5 ML IV SYRINGE IV PRN (12:30)
[2019-03-17] MEDS ORDERED: FENTAnyl 50 MCG/ML VIAL IV PRN (12:30)
[2019-03-17] MEDS ORDERED: OXYCODONE/ACETAMINOPHEN (5/325) TAB PO PRN (12:30)
[2019-03-17] MEDS ORDERED: METOCLOPRAMIDE 10 MG INJ IV PRN (12:30)
[2019-03-17] MEDS: HYDROmorphONE 1 MG/5 ML IV SYRINGE IV PRN ×2 (12:43→12:54)
[2019-03-17] MEDS: D5W-0.45 NACL + KCL 20 MEQ 1,000 ML IV SCH ×2 (13:58→21:44)
[2019-03-17] MEDS: FAMOTIDINE 20 MG INJ IV SCH ×2 (13:58→21:43)
--- NOTE | 2019-03-17 14:49 | PN ---
Date/Time of Note Date/Time of Note DATE: 03/17/19 TIME: 14:46 Assessment/Plan VTE Prophylaxis Risk score (from [facility] [place] risk: 2 SCD applied (from Ns): Yes Pharmacological prophylaxis: other (scds) Lines/Catheters IV [facility] Type (from [facility]): Peripheral IV Assessment/Plan Hospital Course Summary Assessment and Plan: Assessment: Cholelithiasis (symptomatic versus acute cholecystitis) with dilated common bile duct on imaging -ERCP 03/16/19 Impression: Choledocholithiasis 6 mm stone distal common bile duct. Post sphincterotomy. Post stone removal. -S/p Laparoscopic cholecystectomy with fluorescent cholangiogram 03/17/19 Transaminitis-trending down Obesity Plan: Diet per surgery Monitor labs Ambulate and deep breathing Patient seen in collaboration with Dr. Whitfield Subjective: Course reviewed with nursing staff Patient interviewed and examined All labs, imaging and other results reviewed The patient returned from surgery, c/o some surgical pain- to be expected No c/o nausea or vomiting. encourage pt to ambulate and deep breath Exam PHYSICAL EXAMINATION: GENERAL: Well developed, well nourished, alert & oriented x 3, in no acute distress SKIN: No lesions. HEAD: Normocephalic, atraumatic, no tenderness. EYES: Pupils equal reactive to light and accommodation, no discharge. EARS/NOSE AND THROAT: Ears normal, nose normal. NECK: Supple, no masses CHEST: Inspection within normal limits. CARDIOVASCULAR: Heart: Regular rate and rhythm, no murmurs, RESPIRATORY: Lungs clear to auscultation GASTROINTESTINAL AND LIVER: Abdomen: Soft,RUQ tenderness, non-distended, no hernias, no masses, no organomegaly, no ascites, no guarding, no rebound tenderness, normoactive bowel sounds. Rectal: Deferred. EXTREMITIES: No cyanosis, clubbing or edema. Result Diagram: 03/16/19 0441 03/16/19 0441 Results 24hrs Laboratory Tests Test 03/17/19 04:22 Total Bilirubin 0.7 Direct Bilirubin 0.00 Indirect Bilirubin 0.7 Aspartate Amino Transf (AST/SGOT) 212 H Alanine Aminotransferase (ALT/SGPT) 497 H Alkaline Phosphatase 88 Total Protein 6.1 Albumin 3.4 Exam/Review of Systems Exam Vitals Vital Signs Date Temp Pulse Resp B/P (MAP) Pulse Ox O2 O2 Flow FiO2 Time Delivery Rate 03/17/19 97.7 77 20 121/77 94 14:35 (92) 03/17/19 Room Air 13:19 03/17/19 8.0 12:19 Intake and Output 03/16/19 03/16/19 03/17/19 1515:00 23:00 07:00 IntakeIntake Total 600 ml 1420 ml BalanceBalance 600 ml 1420 ml Results Results 24hrs Laboratory Tests Test 03/17/19 04:22 Total Bilirubin 0.7 Direct Bilirubin 0.00 Indirect Bilirubin 0.7 Aspartate Amino Transf (AST/SGOT) 212 H Alanine Aminotransferase (ALT/SGPT) 497 H Alkaline Phosphatase 88 Total Protein 6.1 Albumin 3.4 Medications Medication Current Medications Sodium Chloride 1,000 ml @ 100 mls/hr Q10H IV Last administered on 03/17/19at 02:37; Admin Dose 100 MLS/HR; Start 03/15/19 at 12:30 IV Flush (NS 3 ml) 3 ml PER PROTOCOL IV ; Start 03/15/19 at 12:30 Acetaminophen (Tylenol Tab) 650 mg Q6H PRN PO .PAIN 1-3 OR TEMP Last administered on 03/16/19at 22:54; Admin Dose 650 MG; Start 03/15/19 at 12:30 Acetaminophen/ Hydrocodone Bitart ([place] (5/325)) 1 tab Q6H PRN PO .MOD PAIN 4- 6; Start 03/15/19 at 12:30 Morphine Sulfate (morphine) 2 mg Q4H PRN IV .SEVERE PAIN 7-10 Last administered on 03/17/19at 05:35; Admin Dose 2 MG; Start 03/15/19 at 12:30 Famotidine (Pepcid Iv) 20 mg Q12 IV Last administered on 03/17/19at 13:58; Admin Dose 20 MG; Start 03/15/19 at 21:00 Ondansetron HCl (Zofran Inj) 4 mg Q6H PRN IV NAUSEA AND/OR VOMITING; Start 03/17/19 at 12:00 Ketorolac Tromethamine (Toradol) 30 mg Q6H PRN IV PAIN; Start 03/17/19 at 12:00; Stop 03/20/19 at 11:59 Morphine Sulfate (morphine) 2 mg Q2H PRN IV BREAKTHROUGH PAIN; Start 03/17/19 at 12:00 Acetaminophen (Tylenol Tab) 650 mg Q6H PRN PO MILD PAIN(1-3)OR ELEVATED TEMP; Start 03/17/19 at 12:00 Ibuprofen (Motrin) 600 mg Q6H PRN PO PAIN LEVEL 1-5; Start 03/17/19 at 12:00; Status Hold Acetaminophen/ Hydrocodone Bitart ([place] (5/325)) 1 tab Q6H PRN PO PAIN LEVEL 6-10; Start 03/17/19 at 12:00 Diphenhydramine HCl (Benadryl) 25 mg Q6H PRN PO PRURITUS; Start 03/17/19 at 12:00 Potassium Chloride/Dextrose/ Sod Cl 1,000 ml @ 100 mls/hr Q10H IV Last administered on 03/17/19at 13:58; Admin Dose 100 MLS/HR; Start 03/17/19 at 12:00 Hydromorphone HCl (Dilaudid) 0.2 mg PACU PRN IV MILD PAIN 1-3; Start 03/17/19 at 12:30; Stop 03/17/19 at 18:00 Hydromorphone HCl (Dilaudid) 0.4 mg PACU PRN IV MOD PAIN 4-6 Last administered on 03/17/19at 12:54; Admin Dose 0.4 MG; Start 03/17/19 at 12:30; Stop 03/17/19 at 18:00 Fentanyl (Sublimaze) 25 mcg PACU ORDER PRN IV MILD PAIN 1-3; Start 03/17/19 at 12:30; Stop 03/17/19 at 18:00 Ketorolac Tromethamine (Toradol) 30 mg PACU ORDER PRN IV FOR PAIN AFTER IV NARCOTIC MED; Start 03/17/19 at 12:30; Stop 03/17/19 at 18:00 Oxycodone/ Acetaminophen (Percocet (5/ 325)) 1 tab PACU ORDER PRN PO .PAIN 1-5; Start 03/17/19 at 12:30; Stop 03/17/19 at 18:00 Ondansetron HCl (Zofran Inj) 4 mg PACU ORDER PRN IV NAUSEA/VOMITING; Start 03/17/19 at 12:30; Stop 03/17/19 at 18:00 Metoclopramide HCl (Reglan) 10 mg PACU ORDER PRN IV NAUSEA/VOMITING; Start 03/17/19 at 12:30; Stop 03/17/19 at 18:00 Meperidine HCl (Demerol) 25 mg PACU ORDER PRN IV .RIGORS; Start 03/17/19 at 12:30; Stop 03/17/19 at 18:00 Diphenhydramine HCl (Benadryl) 25 mg PACU ORDER PRN IV .PRURITUS; Start 03/17/19 at 12:30; Stop 03/17/19 at 18:00 JAG ENNIS Mar 17, 2019 14:49
[2019-03-17] MEDS ORDERED: HYDROmorphONE 1 MG/ML SYG IV ONE (16:30)
[2019-03-17] MEDS: KETOROLAC 30 MG INJ IV PRN (18:16)
[2019-03-18 02:30] VITALS: BP 100/57; PULSE 93; RESP 18
[2019-03-18] MEDS: KETOROLAC 30 MG INJ IV PRN ×2 (02:38→09:23)
[2019-03-18 07:34] VITALS: BP 107/66; PULSE 80; PULSE 90; RESP 16
[2019-03-18] MEDS: FAMOTIDINE 20 MG INJ IV SCH (09:15)
[2019-03-18] MEDS: D5W-0.45 NACL + KCL 20 MEQ 1,000 ML IV SCH ×2 (09:22→18:00)
[2019-03-18] MEDS ORDERED: ONDA8TAB9 PO (09:23)
[2019-03-18] MEDS ORDERED: HYDR-4011 PO (09:23)
--- NOTE | 2019-03-18 09:28 | PN ---
Date/Time of Note Date/Time of Note LATE ENTRY DATE: 03/17/19 Assessment/Plan VTE Prophylaxis Risk score (from [facility] [place])>0 risk: 2 SCD applied (from Ns): Yes Pharmacological prophylaxis: NA/contraindicated Pharm contraindication: low risk/ambulating Lines/Catheters IV Catheter Type (from [facility]): Peripheral IV Assessment/Plan Hospital Course Assessment and plan 1. Cholelithiasis with CBD dilation. - MRCP with no CBD dilation. - continue with IV hydration. - analgesics and antiemetics as needed as well. - s/plap-laurence 2. Transaminitis - monitor trend - improving 3. Obesity. - Weight reduction was advised. Disposition plan. trial toradol. continue analgesics. d/c planning Discussed POC with Dr. Gómez Result Diagram: 03/18/1934 03/18/19 0534 Results 24hrs Laboratory Tests Test 03/18/19 05:34 White Blood Count 7.1 # Red Blood Count 3.83 L Hemoglobin 11.2 L Hematocrit 33.4 L Mean Corpuscular Volume 87.2 Mean Corpuscular Hemoglobin 29.2 Mean Corpuscular Hemoglobin Concent 33.5 Red Cell Distribution Width 12.9 Platelet Count 246 # Mean Platelet Volume 10.7 H Immature Granulocytes % 0.400 Neutrophils % 60.2 Lymphocytes % 24.8 Monocytes % 10.0 Eosinophils % 3.9 Basophils % 0.7 Nucleated Red Blood Cells % 0.0 Immature Granulocytes # 0.030 Neutrophils # 4.3 Lymphocytes # 1.8 Monocytes # 0.7 Eosinophils # 0.3 Basophils # 0.1 Nucleated Red Blood Cells # 0.0 Sodium Level 141 Potassium Level 3.5 Chloride Level 108 Carbon Dioxide Level 25 Anion Gap 8 Blood Urea Nitrogen 3 L Creatinine 0.52 Est Glomerular Filtrat Rate mL/min > 60 Glucose Level 103 Calcium Level 8.6 Subjective 24 Hr Interval Summary Free Text/Dictation patient s/p surgical intervention. reports pain on abdomen. reports she wants to try non-opioid analgesic Exam/Review of Systems Exam Vitals Vital Signs Date Temp Pulse Resp B/P (MAP) Pulse Ox O2 O2 Flow FiO2 Time Delivery Rate 03/18/19 99.1 80 16 107/66 97 07:34 (80) 03/18/19 Room Air 02:30 03/17/19 8.0 12:19 Intake and Output 03/17/19 03/17/19 03/18/19 1515:00 23:00 07:00 IntakeIntake Total 1500 ml 1640 ml 600 ml OutputOutput Total 310 ml BalanceBalance 1190 ml 1640 ml 600 ml Exam Constitutional: alert, oriented Psych: nl mood/affect Head: normocephalic Eyes: nl conjunctiva Respiratory: clear to auscultation, normal air movement Cardiovascular: regular rate and rhythm Gastrointestinal: soft, tender Extremities: normal pulses Neurological: [employer] II-XII intact, nl mental status, nl speech Skin: surgical site abd, cdi Results Results 24hrs Laboratory Tests Test 03/18/19 05:34 White Blood Count 7.1 # Red Blood Count 3.83 L Hemoglobin 11.2 L Hematocrit 33.4 L Mean Corpuscular Volume 87.2 Mean Corpuscular Hemoglobin 29.2 Mean Corpuscular Hemoglobin Concent 33.5 Red Cell Distribution Width 12.9 Platelet Count 246 # Mean Platelet Volume 10.7 H Immature Granulocytes % 0.400 Neutrophils % 60.2 Lymphocytes % 24.8 Monocytes % 10.0 Eosinophils % 3.9 Basophils % 0.7 Nucleated Red Blood Cells % 0.0 Immature Granulocytes # 0.030 Neutrophils # 4.3 Lymphocytes # 1.8 Monocytes # 0.7 Eosinophils # 0.3 Basophils # 0.1 Nucleated Red Blood Cells # 0.0 Sodium Level 141 Potassium Level 3.5 Chloride Level 108 Carbon Dioxide Level 25 Anion Gap 8 Blood Urea Nitrogen 3 L Creatinine 0.52 Est Glomerular Filtrat Rate mL/min > 60 Glucose Level 103 Calcium Level 8.6 Medications Medication Current Medications IV Flush (NS 3 ml) 3 ml PER PROTOCOL IV ; Start 03/15/19 at 12:30 Acetaminophen (Tylenol Tab) 650 mg Q6H PRN PO .PAIN 1-3 OR TEMP Last administered on 03/16/19at 22:54; Admin Dose 650 MG; Start 03/15/19 at 12:30 Acetaminophen/ Hydrocodone Bitart ([place] (5/325)) 1 tab Q6H PRN PO .MOD PAIN 4- 6; Start 03/15/19 at 12:30 Morphine Sulfate (morphine) 2 mg Q4H PRN IV .SEVERE PAIN 7-10 Last administered on 03/17/19at 15:25; Admin Dose 2 MG; Start 03/15/19 at 12:30 Famotidine (Pepcid Iv) 20 mg Q12 IV Last administered on 03/18/19at 09:15; Admin Dose 20 MG; Start 03/15/19 at 21:00 Ondansetron HCl (Zofran Inj) 4 mg Q6H PRN IV NAUSEA AND/OR VOMITING Last admini stered on 03/17/19at 21:43; Admin Dose 4 MG; Start 03/17/19 at 12:00 Morphine Sulfate (morphine) 2 mg Q2H PRN IV BREAKTHROUGH PAIN; Start 03/17/19 at 12:00 Acetaminophen (Tylenol Tab) 650 mg Q6H PRN PO MILD PAIN(1-3)OR ELEVATED TEMP; Start 03/17/19 at 12:00 Ibuprofen (Motrin) 600 mg Q6H PRN PO PAIN LEVEL 1-5; Start 03/17/19 at 12:00; Status Hold Acetaminophen/ Hydrocodone Bitart ([place] (5/325)) 1 tab Q6H PRN PO PAIN LEVEL 6-10; Start 03/17/19 at 12:00 Diphenhydramine HCl (Benadryl) 25 mg Q6H PRN PO PRURITUS; Start 03/17/19 at 12:00 Potassium Chloride/Dextrose/ Sod Cl 1,000 ml @ 100 mls/hr Q10H IV Last administered on 03/18/19at 09:22; Admin Dose 100 MLS/HR; Start 03/17/19 at 12:00 Ketorolac Tromethamine (Toradol) 30 mg Q6H PRN IV PAIN LEVEL 1-3 Last administered on 03/18/19 09:23; Admin Dose 30 MG; Start 03/17/19 at 16:30; Stop 03/20/19 at 16:29 EZRA PAN NP Mar 18, 2019 09:28
[2019-03-18] MEDS ORDERED: SENN-120 PO (09:59)
--- NOTE | 2019-03-18 11:59 | PN ---
Date/Time of Note Date/Time of Note DATE: 03/18/19 TIME: 11:56 Assessment/Plan VTE Prophylaxis Risk score (from Ns)>0 risk: 2 SCD applied (from Ns): Yes Pharmacological prophylaxis: other (scds) Lines/Catheters IV C[facility]ter Type (from [facility]): Peripheral IV Assessment/Plan Hospital Course Summary Assessment and Plan: Assessment: Cholelithiasis (symptomatic versus acute cholecystitis) with dilated common bile duct on imaging -ERCP 03/16/19 Impression: Choledocholithiasis 6 mm stone distal common bile duct. Post sphincterotomy. Post stone removal. -S/p Laparoscopic cholecystectomy with fluorescent cholangiogram 03/17/19 Transaminitis-trending down Obesity Plan: Diet per surgery Monitor labs Ambulate and deep breathing GI will sign off be available upon reconsult as needed Patient seen in collaboration with Dr. Whitfield Subjective: Course reviewed with nursing staff Patient interviewed and examined All labs, imaging and other results reviewed She states she is feeling much better today, still with surgical pain- to be expected No over night events, pt is jo-ann diet well, and is passing flatus. LFTs are trending down Exam PHYSICAL EXAMINATION: GENERAL: Well developed, well nourished, alert & oriented x 3, in no acute distress SKIN: No lesions. HEAD: Normocephalic, atraumatic, no tenderness. EYES: Pupils equal reactive to light and accommodation, no discharge. EARS/NOSE AND THROAT: Ears normal, nose normal. NECK: Supple, no masses CHEST: Inspection within normal limits. CARDIOVASCULAR: Heart: Regular rate and rhythm, no murmurs, RESPIRATORY: Lungs clear to auscultation GASTROINTESTINAL AND LIVER: Abdomen: Soft,RUQ tenderness, non-distended, no hernias, no masses, no organomegaly, no ascites, no guarding, no rebound tenderness, normoactive bowel sounds. Rectal: Deferred. EXTREMITIES: No cyanosis, clubbing or edema. Result Diagram: 03/18/19 0534 03/18/19 0534 Results 24hrs Laboratory Tests Test 03/18/19 05:32 03/18/19 05:34 Total Bilirubin 0.5 Direct Bilirubin 0.00 Indirect Bilirubin 0.5 Aspartate Amino Transf (AST/SGOT) 88 H Alanine Aminotransferase (ALT/SGPT) 340 H Alkaline Phosphatase 72 Total Protein 6.3 Albumin 3.6 White Blood Count 7.1 # Red Blood Count 3.83 L Hemoglobin 11.2 L Hematocrit 33.4 L Mean Corpuscular Volume 87.2 Mean Corpuscular Hemoglobin 29.2 Mean Corpuscular Hemoglobin Concent 33.5 Red Cell Distribution Width 12.9 Platelet Count 246 # Mean Platelet Volume 10.7 H Immature Granulocytes % 0.400 Neutrophils % 60.2 Lymphocytes % 24.8 Monocytes % 10.0 Eosinophils % 3.9 Basophils % 0.7 Nucleated Red Blood Cells % 0.0 Immature Granulocytes # 0.030 Neutrophils # 4.3 Lymphocytes # 1.8 Monocytes # 0.7 Eosinophils # 0.3 Basophils # 0.1 Nucleated Red Blood Cells # 0.0 Sodium Level 141 Potassium Level 3.5 Chloride Level 108 Carbon Dioxide Level 25 Anion Gap 8 Blood Urea Nitrogen 3 L Creatinine 0.52 Est Glomerular Filtrat Rate mL/min > 60 Glucose Level 103 Calcium Level 8.6 Exam/Review of Systems Exam Vitals Vital Signs Date Temp Pulse Resp B/P (MAP) Pulse Ox O2 O2 Flow FiO2 Time Delivery Rate 03/18/19 99.1 80 16 107/66 97 07:34 (80) 03/18/19 Room Air 02:30 03/17/19 8.0 12:19 Intake and Output 03/17/19 03/17/19 03/18/19 1414:59 22:59 06:59 IntakeIntake Total 1500 ml 1640 ml 600 ml OutputOutput Total 310 ml BalanceBalance 1190 ml 1640 ml 600 ml Results Results 24hrs Laboratory Tests Test 03/18/19 05:32 03/18/19 05:34 Total Bilirubin 0.5 Direct Bilirubin 0.00 Indirect Bilirubin 0.5 Aspartate Amino Transf (AST/SGOT) 88 H Alanine Aminotransferase (ALT/SGPT) 340 H Alkaline Phosphatase 72 Total Protein 6.3 Albumin 3.6 White Blood Count 7.1 # Red Blood Count 3.83 L Hemoglobin 11.2 L Hematocrit 33.4 L Mean Corpuscular Volume 87.2 Mean Corpuscular Hemoglobin 29.2 Mean Corpuscular Hemoglobin Concent 33.5 Red Cell Distribution Width 12.9 Platelet Count 246 # Mean Platelet Volume 10.7 H Immature Granulocytes % 0.400 Neutrophils % 60.2 Lymphocytes % 24.8 Monocytes % 10.0 Eosinophils % 3.9 Basophils % 0.7 Nucleated Red Blood Cells % 0.0 Immature Granulocytes # 0.030 Neutrophils # 4.3 Lymphocytes # 1.8 Monocytes # 0.7 Eosinophils # 0.3 Basophils # 0.1 Nucleated Red Blood Cells # 0.0 Sodium Level 141 Potassium Level 3.5 Chloride Level 108 Carbon Dioxide Level 25 Anion Gap 8 Blood Urea Nitrogen 3 L Creatinine 0.52 Est Glomerular Filtrat Rate mL/min > 60 Glucose Level 103 Calcium Level 8.6 Medications Medication Current Medications IV Flush (NS 3 ml) 3 ml PER PROTOCOL IV ; Start 03/15/19 at 12:30 Acetaminophen (Tylenol Tab) 650 mg Q6H PRN PO .PAIN 1-3 OR TEMP Last administered on 03/16/19at 22:54; Admin Dose 650 MG; Start 03/15/19 at 12:30 Acetaminophen/ Hydrocodone Bitart ([place] (5/325)) 1 tab Q6H PRN PO .MOD PAIN 4- 6; Start 03/15/19 at 12:30 Morphine Sulfate (morphine) 2 mg Q4H PRN IV .SEVERE PAIN 7-10 Last administered on 03/17/19at 15:25; Admin Dose 2 MG; Start 03/15/19 at 12:30 Famotidine (Pepcid Iv) 20 mg Q12 IV Last administered on 03/18/19at 09:15; Admin Dose 20 MG; Start 03/15/19 at 21:00 Ondansetron HCl (Zofran Inj) 4 mg Q6H PRN IV NAUSEA AND/OR VOMITING Last administered on 03/17/19at 21:43; Admin Dose 4 MG; Start 03/17/19 at 12:00 Morphine Sulfate (morphine) 2 mg Q2H PRN IV BREAKTHROUGH PAIN; Start 03/17/19 at 12:00 Acetaminophen (Tylenol Tab) 650 mg Q6H PRN PO MILD PAIN(1-3)OR ELEVATED TEMP; Start 03/17/19 at 12:00 Ibuprofen (Motrin) 600 mg Q6H PRN PO PAIN LEVEL 1-5; Start 03/17/19 at 12:00; Status Hold Acetaminophen/ Hydrocodone Bitart ([place] (5/325)) 1 tab Q6H PRN PO PAIN LEVEL 6-10; Start 03/17/19 at 12:00 Diphenhydramine HCl (Benadryl) 25 mg Q6H PRN PO PRURITUS; Start 03/17/19 at 12:00 Potassium Chloride/Dextrose/ Sod Cl 1,000 ml @ 100 mls/hr Q10H IV Last administered on 03/18/19at 09:22; Admin Dose 100 MLS/HR; Start 03/17/19 at 12:00 Ketorolac Tromethamine (Toradol) 30 mg Q6H PRN IV PAIN LEVEL 1-3 Last administered on 03/18/19at 09:23; Admin Dose 30 MG; Start 03/17/19 at 16:30; Stop 03/20/19 at 16:29 JAG ENNIS Mar 18, 2019 11:59
--- NOTE | 2019-03-18 13:01 | PDOCDIS ---
Discharge Instructions DIAGNOSIS Discharge Diagnosis 1. Cholelithiasis (symptomatic) 2. Transaminitis 3. Obesity CONDITION [id number] Patient Condition: [id number] Stable HOME CARE INSTRUCTIONS: [id number] Diet Instructions: [id number] Low Fat /Cholesterol FOLLOW UP/APPOINTMENTS Follow-up Plan Follow up with your primary care physician in one week EZRA PAN NP Mar 18, 2019 13:01
[2019-03-18 14:35] VITALS: BP_SYST 93; BP_SYST 95; BP_DIAS 62; BP_DIAS 67; PULSE 87; RESP 18
--- NOTE | 2019-03-20 19:06 | DS ---
Date/Time of Note Date/Time of Note DATE: 03/20/19 TIME: 19:04 Discharge Summary Admission/Discharge Info Admit Date/Time Mar 15, 2019 at 11:44 Discharge Date/Time Mar 18, 2019 at 18:41 Discharge Diagnosis 1. Cholelithiasis (symptomatic) 2. Transaminitis 3. Obesity Patient Condition: Stable Hospital Course This is a 28-year-old female with no reported past medical history who came to [facility] due to reports of abdominal pain for 1 day duration. Patient did report that her abdominal pain started last night when she was eating dinner when she reportedly ate shrimp. She states that after eating the food she started to have vomiting even with little oral consumption or liquids. She reports that she started to have epigastric pain that radiated from her right upper abdominal quadrant. Due to worsening of symptoms came to the hospital. She was afebrile on arrival. No leukocytosis noted. She did get abdominal imaging however with a gallbladder ultrasound showing dilated common bile duct at the level of the [place] hepatis measuring up to 8.5 mm. There is also seen cholelithiasis with multiple gallstones and a distended gallbladder. No evidence of gallbladder wall thickening or pericholecystic fluid. Patient also was noted with elevated liver enzymes as well. Patient was seen by rn hyperbaric as well as by surgeon. She did have MRCP with no CBD dilation. We did turn her liver enzymes. Due to symptomatic cholelithiasis she did undergo laparoscopic cholecystectomy with good response. During her course of stay she did improve. She was able to eat and tolerate diet well. She was also provided with analgesics and antiemetics as needed. We did advise her to follow-up with surgeon as outpatient. She was also advised for weight reduction for her obesity. Plan of care was discussed with the patient and patient verbalized understanding. On the day of discharge patient was in stable condition Discussed POC with Dr. [facility] Active Scripts Sennosides* (Senna Lax*) 8.6 Mg Tablet, 1 TAB PO BID, #60 TAB Prov:EZRA PAN [employer] 03/18/19 Ondansetron Hcl* (Zofran*) 8 Mg Tablet, 8 MG PO Q6H PRN for NAUSEA AND OR VOMITING, #20 TAB Prov:EZRA PAN NP 03/18/19 Hydrocodone/Acetaminophen ([place] 5-325 Tablet) 1 Each Tablet, 1 EACH PO Q4, #20 TAB Prov:EZRA PAN NP 03/18/19 Ibuprofen* (Motrin*) 600 Mg Tab, 600 MG PO Q8 PRN for PAIN AND/OR INFLAMMATION, #30 TAB Prov:EUGENIO MATA MD 09/24/18 Follow-up Plan Follow up with your primary care physician in one week Primary Care Provider Care Physician No Primary Time spent on discharge: > 30 minutes EZRA PAN NP Mar 20, 2019 19:06
== END 2019-03-18 18:41 | disposition home or self-care (01) | DRG 419 ==
LOC: FTE 08:17 → 2NE 11:44 → EDBEDREQ 13:34
PROVIDERS: ADMIT Hospitalist; ATTEND Hospitalist
PROC: 0FC98ZZ Extirpation of Matter from Common Bile Duct, Via Natural or Artificial Opening Endoscopic (ICD-10-PCS; 2019-03-16)
PROC: 0FT44ZZ Resection of Gallbladder, Percutaneous Endoscopic Approach (ICD-10-PCS; principal; 2019-03-17 10:30)
DX: K80.62 Calculus of gallbladder and bile duct with acute cholecystitis without obstruction (principal); K83.8 Other specified diseases of biliary tract; E66.9 Obesity, unspecified; Z68.35 Body mass index [BMI] 35.0-35.9, adult
CPT/HCPCS: 36415; 74181; 74330; 76705; 80048; 80053; 80061; 80076; 81001; 81025; 83036; 83690; 83735; 84100; 84436; 84443; 84479; 85025; 86704; 86709; 86803; 87340; 88304; 96361; 96374; 96375; J0295; J0690; J1170; J1885; J2250; J2270; J2405; J2710; J2795; J3010; J3480; J7030